=== PATIENT | male | born 1950 | race Caucasian/White ===

== ENCOUNTER → 2018-07-11 | Outpatient (CLI) | payer MEDICARE, OTHER ==
[~2018-07-11] MED LIST: ALBU90OI6; ASCO500 PO; ASPI81EC PO; ATEN100 PO; FOLI1 PO; GEMF600 PO; GLIM4 PO; LISINOPRIL PO; LYSINE PO; METFORMIN PO; METTREX2.5 PO; MULVITMIND PO; PRAVASTATIN PO; PROB500 PO; PROPAFENONE PO; SPIR25 PO; WARF7.5 PO
== END | disposition home or self-care (01) ==
LOC: LAB 10:08 → LAB SHORT 10:08
DX: C44.329 Squamous cell carcinoma of skin of other parts of face (principal)
CPT/HCPCS: 88305

== ENCOUNTER → 2018-07-25 | Outpatient (CLI) | payer MEDICARE, OTHER | END | disposition home or self-care (01) | LOC: LAB SHORT 13:49 → PLD 13:49 | DX: C44.329 Squamous cell carcinoma of skin of other parts of face (principal) | CPT/HCPCS: 88305 ==

== ENCOUNTER 2018-12-20 20:17 | Emergency (ER) | payer MEDICARE, OTHER ==
[~2018-12-20] VITALS: Ht 182.9 cm; Wt 133.8 kg
[2018-12-20] MEDS ORDERED: XARELTO20 MG PO (20:42)
[2018-12-20 20:52] LABS: BASOPHILS ABSOLUTE AUTO 0.06 K/mm3 (0.00-0.23); BASOPHILS PERCENT AUTO 1 % (0-2); EOSINOPHILS ABSOLUTE AUTO 0.22 K/mm3 (0.00-0.68); EOSINOPHILS PERCENT AUTO 2 % (0-6); Hematocrit 39.4 % (37.0-53.0); Hemoglobin 13.1 g/dL (13.5-17.5); IMMATURE GRAN ABSOLUTE AUTO 0.06 K/mm3 (0.00-0.10); IMMATURE GRAN PERCENT AUTO 1 % (0-1); LYMPHOCYTES ABSOLUTE AUTO 1.05 K/mm3 (0.84-5.20); LYMPHOCYTES PERCENT AUTO 11 % (21-46); MONOCYTES ABSOLUTE AUTO 1.59 K/mm3 (0.16-1.47); MONOCYTES PERCENT AUTO 17 % (4-13); Mean Corpuscular HGB 30.5 pg (26.0-34.0); Mean Corpuscular HGB Conc 33.2 g/dL (31.5-36.5); Mean Corpuscular Volume 92 fL (80-100); Mean Platelet Volume 9.9 fL (9.1-12.4); NEUTROPHILS ABSOLUTE AUTO 6.54 K/mm3 (1.96-9.15); NEUTROPHILS PERCENT AUTO 69 % (41-73); Platelet Count 273 K/mm3 (150-400); RDW Coefficient Variation 12.3 % (11.7-14.2); RDW Standard Deviation 41.1 fL (35.1-46.3); White Blood Cell Count 9.52 K/mm3 (4.00-11.30)
[2018-12-20 21:12] LABS: Alanine Aminotransfer (ALT/SGP 125 U/L (12-78); Albumin, Blood 3.5 g/dL (3.4-5.0); Albumin/Globulin Ratio 0.7 (0.8-1.8); Alk Phos 103 U/L (50-136); Anion Gap 11 mmol/L (6-16); Aspartate Aminotrans (AST/SGOT 72 U/L (12-37); Bilirubin, Total 0.5 mg/dL (0.1-1.0); Blood Urea Nitrogen 30 mg/dL (8-24); Bun/Creatinine Ratio 22.2 (12.0-20.0); CO2, Blood 23 mmol/L (21-32); Calcium, Blood 9.7 mg/dL (8.5-10.1); Chloride, Blood 95 mmol/L (98-108); Creatinine, Blood 1.35 mg/dL (0.60-1.20); Glomerular Filtration Rate 56 (60-); Glucose, Blood 273 mg/dL (70-99); Potassium, Blood 4.9 mmol/L (3.5-5.5); Sodium, Blood 129 mmol/L (136-145); Total Protein, Blood 8.5 g/dL (6.4-8.2); Troponin I <0.015 ng/mL (0.000-0.040)
[2018-12-20] MEDS ORDERED: Prednisone20 MG PO (22:15)
[2018-12-20] MEDS ORDERED: Vibramycin100 MG PO (22:15)
== END 2018-12-20 22:34 | disposition home or self-care (01) ==
LOC: ER 20:17
PROVIDERS: Emergency Medicine
DX: I48.91 Unspecified atrial fibrillation (principal); J45.909 Unspecified asthma, uncomplicated; Z79.899 Other long term (current) drug therapy; Z79.82 Long term (current) use of aspirin
CPT/HCPCS: 71046; 80053; 82947; 84484; 85025; 93005; 93010; 99284-25

== ENCOUNTER → 2019-12-10 | Outpatient (CLI) | payer MEDICARE, OTHER ==
[~2019-12-10] MED LIST changes: +Prednisone20 MG PO; +Vibramycin100 MG PO; +XARELTO20 MG PO
== END | disposition home or self-care (01) ==
LOC: LAB SHORT 12:27 → PLD 12:27
DX: L57.0 Actinic keratosis (principal)
CPT/HCPCS: 88305

== ENCOUNTER → 2020-09-03 | Outpatient (CLI) | payer MEDICARE, OTHER | END | disposition home or self-care (01) | LOC: LAB SHORT 10:59 → PLD 10:59 | DX: D04.5 Carcinoma in situ of skin of trunk (principal) | CPT/HCPCS: 88305 ==

== ENCOUNTER → 2022-04-07 | Outpatient (CLI) | payer MEDICARE, OTHER | END | disposition home or self-care (01) | LOC: LAB SHORT 11:07 → PLD 11:07 | DX: D04.4 Carcinoma in situ of skin of scalp and neck (principal); D23.39 Other benign neoplasm of skin of other parts of face | CPT/HCPCS: 88305 ==

== ENCOUNTER 2023-03-05 03:00 | Inpatient (IN) | payer MEDICARE, OTHER ==
[~2023-03-05] VITALS: Ht 182.9 cm; Wt 143.8 kg
[2023-03-05 04:17] LABS: BASOPHILS ABSOLUTE AUTO 0.03 K/mm3 (0.00-0.23); BASOPHILS PERCENT AUTO 1 % (0-2); EOSINOPHILS ABSOLUTE AUTO 0.05 K/mm3 (0.00-0.68); EOSINOPHILS PERCENT AUTO 1 % (0-6); Hematocrit 39.3 % (37.0-53.0); Hemoglobin 13.2 g/dL (13.5-17.5); IMMATURE GRAN ABSOLUTE AUTO 0.02 K/mm3 (0.00-0.10); IMMATURE GRAN PERCENT AUTO 0 % (0-1); LYMPHOCYTES ABSOLUTE AUTO 0.41 K/mm3 (0.84-5.20); LYMPHOCYTES PERCENT AUTO 7 % (21-46); MONOCYTES PERCENT AUTO 8 % (4-13); Mean Corpuscular HGB 29.8 pg (26.0-34.0); Mean Corpuscular HGB Conc 33.6 g/dL (31.5-36.5); Mean Corpuscular Volume 89 fL (80-100); Mean Platelet Volume 10.2 fL (9.1-12.4); NEUTROPHILS PERCENT AUTO 84 % (41-73); Platelet Count 155 K/mm3 (150-400); RDW Coefficient Variation 13.4 % (11.7-14.2); RDW Standard Deviation 43.8 fL (35.1-46.3); Red Blood Cell Count 4.43 M/mm3 (4.30-5.90); White Blood Cell Count 6.31 K/mm3 (4.00-11.30)
[2023-03-05] MEDS ORDERED: Flovent 44 mc10.6 GM INH (04:19)
[2023-03-05] MEDS ORDERED: DOXAZOSIN MESYLA2 MG PO (04:19)
[2023-03-05] MEDS ORDERED: AMLODIPINE BESYL5 MG PO (04:21)
[2023-03-05 04:28] LABS: Albumin, Blood 3.5 g/dL (3.4-5.0); Albumin/Globulin Ratio 0.9 (0.8-1.8); Bilirubin, Total 0.6 mg/dL (0.1-1.0); Bun/Creatinine Ratio 23.9 (12.0-20.0); Calcium, Blood 9.3 mg/dL (8.5-10.1); Creatinine, Blood 1.09 mg/dL (0.60-1.20); Globulin, Blood 3.9 g/dL (2.2-4.0); Potassium, Blood 4.5 mmol/L (3.5-5.5); Total Protein, Blood 7.4 g/dL (6.4-8.2)
[2023-03-05] MEDS ORDERED: XARELTO20 M1 PO (04:43)
[2023-03-05] MEDS ORDERED: INVOKANA100 MG PO (04:43)
[2023-03-05 08:30] VITALS: BP 148/100
[2023-03-05 12:15] LABS: Influenza A, PCR NEGATIVE (NEGATIVE); Influenza B, PCR NEGATIVE (NEGATIVE); Resp Syncytial Virus, PCR NEGATIVE (NEGATIVE); SARS-Cov-2 (COVID-19) PCR, MMC NEGATIVE (NEGATIVE)
[2023-03-05 15:43] VITALS: BP 127/80
--- NOTE | 2023-03-05 16:43 | NUR ---
SHIFT SUMMARY PT ADMITTED FROM THE ED THIS AM. HE IS AOX4 AND INDEPENDENT IN THE ROOM. HIS DAUGHTER HAS BEEN AT THE BS THIS WHOLE SHIFT, THE SHOWED UP RECENTLY. HE IS COOPERATIVE AND PLEASANT, MAKES HIS NEEDS KNOWN. HE IS AN AC/HS CHECK AND HAS SHORT ACTING INSULIN ORDERED. HE IS ON TELE AND RUNNING AFIB, HE SAID HE HAS BEEN IN AFIB FOR QUITE SOME TIME. HE IS ALSO ON 2L NC AND NOT ON OXYGEN AT HOME. CALL LIGHT IS WITHIN REACH, BED IN THE LOWEST POSITION. WILL REPORT TO ONCOMING NURSE.
[2023-03-05 20:13] VITALS: BP 137/90
--- NOTE | 2023-03-06 03:42 | NUR ---
shift summery, pts family here earlyer in the shift to vist pt. pt has on his o2 per nc. pt wnt to bed after family left . pt had been sittimg up on chair. pt now laying in bed trying to go to sleep. pthad no c/o just wanting to know if MD would be seeing him tomarow and tell him what the plan was. call light in reach.
[2023-03-06 05:01] LABS: BASOPHILS ABSOLUTE AUTO 0.01 K/mm3 (0.00-0.23); BASOPHILS PERCENT AUTO 0 % (0-2); EOSINOPHILS PERCENT AUTO 0 % (0-6); Hematocrit 38.8 % (37.0-53.0); Hemoglobin 12.8 g/dL (13.5-17.5); IMMATURE GRAN ABSOLUTE AUTO 0.01 K/mm3 (0.00-0.10); IMMATURE GRAN PERCENT AUTO 0 % (0-1); LYMPHOCYTES ABSOLUTE AUTO 0.45 K/mm3 (0.84-5.20); LYMPHOCYTES PERCENT AUTO 9 % (21-46); MONOCYTES ABSOLUTE AUTO 0.47 K/mm3 (0.16-1.47); MONOCYTES PERCENT AUTO 9 % (4-13); Mean Corpuscular HGB 29.6 pg (26.0-34.0); Mean Corpuscular Volume 90 fL (80-100); Mean Platelet Volume 9.9 fL (9.1-12.4); NEUTROPHILS ABSOLUTE AUTO 4.05 K/mm3 (1.96-9.15); NEUTROPHILS PERCENT AUTO 81 % (41-73); Platelet Count 150 K/mm3 (150-400); RDW Coefficient Variation 13.3 % (11.7-14.2); RDW Standard Deviation 43.8 fL (35.1-46.3); Red Blood Cell Count 4.32 M/mm3 (4.30-5.90); White Blood Cell Count 4.99 K/mm3 (4.00-11.30)
[2023-03-06 05:06] VITALS: BP 107/79
[2023-03-06 05:39] LABS: Albumin, Blood 3.2 g/dL (3.4-5.0); Albumin/Globulin Ratio 0.9 (0.8-1.8); Bilirubin, Total 0.3 mg/dL (0.1-1.0); Bun/Creatinine Ratio 29.8 (12.0-20.0); Calcium, Blood 9.3 mg/dL (8.5-10.1); Creatinine, Blood 1.04 mg/dL (0.60-1.20); Globulin, Blood 3.6 g/dL (2.2-4.0); Potassium, Blood 4.3 mmol/L (3.5-5.5); Total Protein, Blood 6.8 g/dL (6.4-8.2)
[2023-03-06 07:27] VITALS: BP 113/76
[2023-03-06 14:42] VITALS: BP 135/94
--- NOTE | 2023-03-06 17:45 | NUR ---
NOTE: CONTACTED BY TELE, STATING PT'S PULSE WAS IN THE 160-170'S. NOTIFIED PROVIDER, DR. MILLER, AND HE SAID HE WOULD REVIEW HIS MEDICATIONS AND POSSIBLY MAKE ADJUSTEMENTS.
--- NOTE | 2023-03-06 18:15 | NUR ---
SHIFT SUMMARY PT AOX4, INDEPENDENT TO THE BATHROOM. AFIB ON TELE, NO COMPLAINTS FROM THE PT THIS SHIFT. AROUND 1730, TELE CONTACTED THE NURSE STATING THE PT WAS TACHY (THERE IS ANOTHER NOTE ABOUT THIS IN THE CHART). PROVIDER WAS NOTIFIED AND A ONE TIME DOSE OF METOPROLOL WAS ORDERED AND GIVEN. JUST PRIOR THE MEDICATION ADMINISTRATION, PT WAS SUSTAINING IN THE 180-190 PER HIM CLERK. NURSE CONTACTED TELE AND RECHECKED, PT WAS NOW IN AROUND 140. PT DID NOT C/O CP,SOB, OR ANY OTHER DISCOMFORTS. PT IS NOW RESTING COMFORTABLY IN HIS BED. HE THINKS IT WAS CAUSED BY THE BREATHING TX, HE HAD ALSO JUST WALKED TO THE BATHROOM. WILL REPORT TO ONCOMING NURSE.
--- NOTE | 2023-03-06 19:52 | NUR ---
ASSUMED PT CARE FROM FER RN. PT IS A&OX4. UP TO BATHROOM WITH STEADY GAIT,POSTURE ERECT. PT DENIES ANY CHEST PAIN WHEN UP. SOB PRESENT BUT NOT INCREASED WHEN UP FROM WHAT IT HAS BEEN ALREADY FROM ADMIT. HR INTO 180'S WHEN UP, A-FIB. WILL MONITOR WHEN HE GETS BACK TO BED.
[2023-03-06 20:36] VITALS: BP 142/85
--- NOTE | 2023-03-06 21:37 | NUR ---
AFTER RETURNING TO BED PT HR MAINTAINS IN THE 90-100'S. ASYMPTOMATIC WHEN HR UP TO 180'S.
[2023-03-07 05:14] VITALS: BP 123/100
--- NOTE | 2023-03-07 07:36 | NUR ---
SHIFT SUMMARY: A&OX4. ABLE TO FOLLOW DIRECTIONS AND MAKE NEEDS KNOWN. REPORTS IMPROVED SOB, O2 SATS > 92% ON 3 LPM. INDEPENDENT IN ROOM TO BATHROOM. HR IS A-FIB, INCREASES TO 180'S WHEN STANDING, WHEN RETURNED TO BED DECREASES TO 90'S. ASYMPTOMATIC WHEN HR ELEVATED. VITAL SIGNS STABLE. CALL LIGHT IN REACH.
[2023-03-07 07:52] VITALS: BP 141/98
[2023-03-07] MEDS ORDERED: AZIT250 PO (13:21)
[2023-03-07] MEDS ORDERED: METO50ER PO (13:21)
[2023-03-07] MEDS ORDERED: Amoxicillin500 MG PO (13:22)
[2023-03-07] MEDS ORDERED: IPRAT-ALBUT 0.5-3 ML INH (13:22)
[2023-03-07] MEDS ORDERED: PRED20 PO (13:24)
--- NOTE | 2023-03-07 15:53 | NUR ---
PT DISCHARGED HOME. DISCHARGE INSTRUCTIOINS AND EDUCATION MATERIAL EXPLAINED TO PT. ALL QUESTIONS ANSWERED AND NO NEW CONCERNS. MEDICATIONS FAXED TO [facility]. RAJAN DC'D. ALL BELONGINGS SENT HOME WITH PT. PT TAKEN BY WHEELCHAIR TO WAITING VEHICLE.
== END 2023-03-07 14:26 | disposition home or self-care (01) | DRG 193 ==
LOC: ER 03:00 → MEDS 06:51 → ENPENDDIS 03-07 10:00 → MEDS 03-07 14:26
PROVIDERS: Student in an Organized Health Care Education/Training Program; ADMIT Internal Medicine
DX: J18.9 Pneumonia, unspecified organism (principal); J96.01 Acute respiratory failure with hypoxia; I48.21 Permanent atrial fibrillation; J45.901 Unspecified asthma with (acute) exacerbation; J44.1 Chronic obstructive pulmonary disease with (acute) exacerbation; J44.0 Chronic obstructive pulmonary disease with (acute) lower respiratory infection; Z68.41 Body mass index [BMI] 40.0-44.9, adult; E87.1 Hypo-osmolality and hyponatremia; Z66 Do not resuscitate; E66.9 Obesity, unspecified; N18.30 Chronic kidney disease, stage 3 unspecified; I12.9 Hypertensive chronic kidney disease with stage 1 through stage 4 chronic kidney disease, or unspecified chronic kidney disease; M10.9 Gout, unspecified; E78.5 Hyperlipidemia, unspecified; M06.9 Rheumatoid arthritis, unspecified; N40.0 Benign prostatic hyperplasia without lower urinary tract symptoms; E11.22 Type 2 diabetes mellitus with diabetic chronic kidney disease; Z20.822 Contact with and (suspected) exposure to COVID-19; Z85.46 Personal history of malignant neoplasm of prostate; Z79.899 Other long term (current) drug therapy; Z79.52 Long term (current) use of systemic steroids; Z79.01 Long term (current) use of anticoagulants; Z79.811 Long term (current) use of aromatase inhibitors; Z79.51 Long term (current) use of inhaled steroids; Z79.82 Long term (current) use of aspirin; Z79.2 Long term (current) use of antibiotics; Z87.01 Personal history of pneumonia (recurrent); Z98.890 Other specified postprocedural states; Z98.52 Vasectomy status; Z96.651 Presence of right artificial knee joint; Z87.891 Personal history of nicotine dependence
CPT/HCPCS: 0241U; 36415; 71046; 80053; 82947; 84145; 85025; 93005; 93010; 94640; 94664; 94760; 94761; 94762; 96361; 96365; 96375; 99285-25; A9270; J0456; J0696; J2930; J7030; J7050; J7512

== ENCOUNTER → 2023-08-22 | Outpatient (CLI) | payer MEDICARE, OTHER ==
[~2023-08-22] MED LIST changes: +AMLODIPINE BESYL5 MG PO; +AZIT250 PO; +Amoxicillin500 MG PO; +DOXAZOSIN MESYLA2 MG PO; +Flovent 44 mc10.6 GM INH; +INVOKANA100 MG PO; +IPRAT-ALBUT 0.5-3 ML INH; +METO50ER PO; +PRED20 PO; +XARELTO20 M1 PO
== END ==
LOC: LAB SHORT 14:24 → PLD 14:24
DX: D04.21 Carcinoma in situ of skin of right ear and external auricular canal (principal)
CPT/HCPCS: 88305